=== PATIENT | male | born 1950 | race Caucasian/White ===

== ENCOUNTER 2019-12-12 16:20 | Emergency (ER) | payer MEDICARE ==
[2019-12-14] MEDS ORDERED: DICL1KIT14 TP (13:50)
[2019-12-14] MEDS ORDERED: LOSA1TAB54 PO (13:50)
[2019-12-14] MEDS ORDERED: CELE200C PO (13:50)
[2019-12-14] MEDS ORDERED: ASPI-1443 PO (13:50)
[2019-12-14] MEDS ORDERED: VALA10002 PO (13:50)
[2019-12-14] MEDS ORDERED: testosterone gel TP (13:50)
[2019-12-14] MEDS ORDERED: OMEP40CA13 PO (13:50)
== END 2019-12-12 17:46 | disposition home or self-care (01) ==
LOC: EDH 16:20
DX: K40.90 Unilateral inguinal hernia, without obstruction or gangrene, not specified as recurrent (principal); I10 Essential (primary) hypertension; Z88.8 Allergy status to other drugs, medicaments and biological substances; Z98.890 Other specified postprocedural states; Z98.52 Vasectomy status
CPT/HCPCS: 99281

== ENCOUNTER 2019-12-17 08:30 | Day surgery (SDC) | payer MEDICARE ==
[2019-12-13 13:33] LABS: BASOPHILS % (AUTO) 0.6 % (0.0-5.0); EOSINOPHILS % (AUTO) 1.8 % (0.0-8.0); HEMATOCRIT 49.3 % (42-54); LYMPHOCYTES % (AUTO) 11.7 % (21.0-51.0); MEAN CORPUSCULAR HEMOGLOBIN 26.7 pg (27.0-33.0); MEAN CORPUSCULAR HGB CONC 32.7 g/dL (32.0-36.0); MEAN CORPUSCULAR VOLUME 81.9 fL (79-99); MONOCYTES % (AUTO) 6.2 % (3.0-13.0); NEUTROPHILS % (AUTO) 79.5 % (40.0-77.0); PLATELET COUNT (AUTO) 215 K/uL (130-400); RED BLOOD CELL COUNT(AUTO) 6.02 MIL/uL (4.50-6.20); RED CELL DISTRIBUTION WIDTH 14.8 % (11.0-15.5); WHITE BLOOD COUNT (AUTO) 6.6 K/uL (4.8-10.8)
[2019-12-13 13:46] LABS: CREATININE 1.1 mg/dL (0.5-1.5)
[2019-12-14 13:42] VITALS: BP 130/69
[~2019-12-17] VITALS: Ht 175.3 cm; Wt 77.6 kg
[2019-12-17] VITALS (16 sets, daily range): BP systolic 131–152; BP diastolic 71–82
[~2019-12-17 08:30] MED LIST: ASPI-1443 PO; CELE200C PO; DICL1KIT14 TP; LOSA1TAB54 PO; OMEP40CA13 PO; VALA10002 PO; testosterone gel TP
[2019-12-17] MEDS ORDERED: ONDANSETRON HCL 4 MG/2 ML VIAL ONE (09:46)
[2019-12-17] MEDS ORDERED: NEOSTIGMINE 5MG/5ML SYR IV ONE (09:46)
[2019-12-17] MEDS ORDERED: GLYCOPYRROLATE 1 MG/5 ML SYRINGE ONE (09:46)
[2019-12-17] MEDS ORDERED: MIDAZOLAM HCL 1 MG/ML 2ML VIAL ONE (09:46)
[2019-12-17] MEDS ORDERED: DEXAMETHASONE SOD PHOSPHATE 10MG/ML 1ML VIAL ONE (09:46)
[2019-12-17] MEDS ORDERED: PROPOFOL 10 MG/ML 20ML VIAL IV ONE (09:46)
[2019-12-17] MEDS ORDERED: SUCCINYLCHOLINE 200MG/10ML SYR ONE (09:46)
[2019-12-17] MEDS ORDERED: ROCURONIUM 10MG/1ML SYR 10 MG/ML ML ONE (09:46)
[2019-12-17] MEDS ORDERED: LIDOCAINE PF 2% 5ML ABBOJECT ONE (09:46)
[2019-12-17] MEDS ORDERED: FENTANYL CITRATE PF 50 MCG/1 ML 5ML AMP IV ONE (09:47)
[2019-12-17] MEDS ORDERED: CEFAZOLIN SODIUM 1 GM VIAL ONE (09:59)
[2019-12-17] MEDS ORDERED: LACTATED RINGERS 1000ML 1,000 ML IV ONE (09:59)
[2019-12-17] MEDS ORDERED: EPHEDRINE SULFATE 50 MG/ML AMPULE ONE (10:42)
[2019-12-17] MEDS ORDERED: BUPIVACAINE/PF 0.5% 30ML VIAL ONE (11:10)
[2019-12-17] MEDS ORDERED: MEPERIDINE-PF 25 MG/ML SYG ONE (12:40)
--- NOTE | 2019-12-17 13:15 | NUR ---
Pt received Pt received from PACU via stretcher accompanied by Charu Quintanilla RN. Pt awake but drowsy and able to follow command. Has 3 band-aid dressings with steri strip to abdomen; dry and intact. Slight scrotal edema noted. VS wnl. Pt feeling sensation to void. Urinal given
--- NOTE | 2019-12-17 14:10 | NUR ---
D/C Pt prepared for discharge. Verbal discharge instructions and f/u appointment info given to over the phone. Gave written instructions with prescription given to pt. No bleeding noted to band-aids; no increase edema to scrotum noted. Pt did not void. Informed to monitor pt to void; if no voiding to contact MD when pt taken to vehicle via w/c. Reinstructed that written ins. and rx was given to pt. Pt talkative and denies any distress.
== END 2019-12-17 14:20 ==
LOC: DAH 08:30
PROVIDERS: ATTEND Surgery
DX: K40.30 Unilateral inguinal hernia, with obstruction, without gangrene, not specified as recurrent (principal); Z20.828 Contact with and (suspected) exposure to other viral communicable diseases; I10 Essential (primary) hypertension; J45.909 Unspecified asthma, uncomplicated; M19.90 Unspecified osteoarthritis, unspecified site; K21.9 Gastro-esophageal reflux disease without esophagitis; Z88.8 Allergy status to other drugs, medicaments and biological substances; Z90.89 Acquired absence of other organs; Z79.899 Other long term (current) drug therapy; Z79.82 Long term (current) use of aspirin
CPT/HCPCS: 36415; 49650; 80048; 85025; 93005; A4215; A4221; A4222; A4223; A4344; A4663; A6260; C1769 ×2; C1781; C9803; J0330; J0690; J1100; J2001; J2175; J2250; J2405; J2704; J2710; J3010; J3490 ×3; J7030; J7120; U0003

== ENCOUNTER → 2021-06-29 | Outpatient (CLI) | payer OTHER ==
[~2021-06-29] MED LIST changes: -OMEP40CA13 PO; +OMEP40CA21 PO; -VALA10002 PO
== END ==
LOC: RAH 13:13
PROVIDERS: ATTEND Internal Medicine Gastroenterology
DX: R10.13 Epigastric pain (principal)
CPT/HCPCS: 78264; A9541

== ENCOUNTER → 2021-07-28 | Outpatient (CLI) | payer OTHER ==
[2021-07-28 12:30] LABS: CREATININE 1.2 mg/dL (0.5-1.5)
== END | disposition home or self-care (01) ==
LOC: LAB 11:22
PROVIDERS: ATTEND Internal Medicine Gastroenterology
DX: D12.6 Benign neoplasm of colon, unspecified (principal)
CPT/HCPCS: 36415; 82565; 84520